=== PATIENT | female | born 1940 | race Caucasian/White ===

== ENCOUNTER 2024-01-18 11:25 | Inpatient (IN) | payer MEDICARE ==
[~2024-01-18] VITALS: Ht 157.5 cm; Wt 46.0 kg
[2024-01-18 12:41] LABS: HEMOGLOBIN 10.9 g/dl (12.0-16.0); RED CELL DISTRIBUTION WIDTH 16.8 % (11.5-14.5); WHITE BLOOD COUNT 6.5 X10'3 (4.5-11.0)
[2024-01-18 12:43] LABS: BASOPHILS # (AUTO) 0.1 X10'3 (0-0.2); BASOPHILS % (AUTO) 0.9 % (0-1); EOSINOPHILS # (AUTO) 0.1 X10'3 (0-0.9); EOSINOPHILS % (AUTO) 2.1 % (0-6); HEMATOCRIT 33.6 % (35.0-45.0); LYMPHOCYTES # (AUTO) 1.2 X10'3 (1.1-4.8); LYMPHOCYTES % (AUTO) 18.5 % (21-51); MEAN CORPUSCULAR HEMOGLOBIN 31.1 PG (27.0-31.0); MEAN CORPUSCULAR HGB CONC 32.4 g/dL (33.0-36.5); MEAN PLATELET VOLUME 8.6 FL (7.4-10.4); MONOCYTES # (AUTO) 0.7 X10'3 (0-0.9); MONOCYTES % (AUTO) 10.8 % (2-12); NEUTROPHILS # (AUTO) 4.4 X10'3 (1.8-7.7); NEUTROPHILS % (AUTO) 67.7 % (42-75); PLATELET COUNT 244 X10'3 (140-440)
[2024-01-18 13:08] LABS: ALANINE AMINOTRANSFERASE 21 U/L (12-78); ALBUMIN 2.3 G/DL (3.4-5.0); ALBUMIN/GLOBULIN RATIO 0.6 (1.1-1.5); ALKALINE PHOSPHATASE 86 IU/L (46-116); ANION GAP 6 (8-16); ASPARTATE AMINO TRANSFERASE 25 U/L (10-37); BILIRUBIN,TOTAL 0.3 MG/DL (0.1-1.0); BLOOD UREA NITROGEN 28 MG/DL (7-18); BUN/CREATININE RATIO 18.9 (10.0-20.0); CALCIUM 8.6 MG/DL (8.5-10.1); CHLORIDE 108 MMOL/L (99-107); CREATININE 1.48 MG/DL (0.40-0.90); GLUCOSE 106 MG/DL (70-104); POTASSIUM 4.6 MMOL/L (3.5-5.1); SODIUM 142 MMOL/L (135-145); TOTAL CARBON DIOXIDE 28.2 MMOL/L (24-32); TOTAL PROTEIN 6.4 G/DL (6.4-8.2); eCRCL 20 ML/MIN; eGFR 34 ML/MIN
[2024-01-18] MEDS: normal saline 1000ML IV soln IVB ONE (18:05)
[2024-01-18] MEDS: hydrALAZINE 20mg/ml inj. IV ONE (20:45)
[2024-01-18] MEDS ORDERED: potassium Cl 40MEQ/1/2NS 520ml 520 ML IV PRN (21:15)
[2024-01-18] MEDS ORDERED: magnesium 2GM in 50ml NS 50 ML IV PRN (21:15)
[2024-01-18] MEDS: normal saline 1000ml 1,000 ML IV SCH ×2 (21:15→21:35)
[2024-01-18] MEDS ORDERED: potassium Cl 20 mEq SR tablet PO PRN ×2 (21:15)
[2024-01-18] MEDS ORDERED: magnesium 4gm in 100ml NS 100 ML IV PRN (21:15)
[2024-01-18] MEDS ORDERED: ondansetron/PF 4mg/2ml inj IV PRN (21:15)
[2024-01-18] MEDS: megestrol acetate 20mg tablet PO SCH (21:34)
[2024-01-18] MEDS: losartan 50mg tablet PO STA (23:35)
[2024-01-19] VITALS (10 sets, daily range): BP systolic 107–141; BP diastolic 48–67; PULSE 63–85; RESP 14–18; TEMP 97.6–98.8; O2SAT 90–98
[2024-01-19] MEDS ORDERED: albuterol 2.5 MG/3 ML nebule NEB PRN (00:30)
[2024-01-19] MEDS: hydrALAZINE 20mg/ml inj. IV ONE (05:04)
[2024-01-19] MEDS: albuterol 2.5 MG/3 ML nebule NEB SCH (05:35)
[2024-01-19] MEDS: K and/or MAG REPLACEMENT MC SCH (08:00)
[2024-01-19] MEDS ORDERED: losartan 50mg tablet PO SCH (08:00)
[2024-01-19] MEDS: heparin, porcine 5000 units/ml vial SQ SCH (08:54)
[2024-01-19] MEDS: metoprolol tartrate 25mg tablet PO SCH (08:56)
[2024-01-19] MEDS: losartan 50mg tablet PO SCH (08:57)
[2024-01-19 09:10] LABS: MAGNESIUM 2.1 MG/DL (1.5-2.4)
[2024-01-19 09:12] LABS: POTASSIUM 4.6 MMOL/L (3.5-5.1)
[2024-01-19 10:56] LABS: APTT 24 SECONDS (22-32); PROTHROMBIN TIME 10.4 SECONDS (9.0-12.0)
[2024-01-19 12:49] LABS: THYROID STIMULATING HORMONE 3.81 ulU/ml (0.34-4.50)
[2024-01-20] VITALS (17 sets, daily range): BP systolic 121–179; BP diastolic 57–68; PULSE 60–86; RESP 13–18; TEMP 97.5–98.7; O2SAT 92–96
[2024-01-20 07:13] LABS: MAGNESIUM 1.9 MG/DL (1.5-2.4); POTASSIUM 4.3 MMOL/L (3.5-5.1)
[2024-01-20 08:53] LABS: BASOPHILS % (AUTO) 0.8 % (0-1); EOSINOPHILS # (AUTO) 0.1 X10'3 (0-0.9); EOSINOPHILS % (AUTO) 1.3 % (0-6); HEMATOCRIT 29.1 % (35.0-45.0); HEMOGLOBIN 9.2 g/dl (12.0-16.0); LYMPHOCYTES # (AUTO) 0.7 X10'3 (1.1-4.8); MEAN CORPUSCULAR HEMOGLOBIN 30.5 PG (27.0-31.0); MEAN CORPUSCULAR HGB CONC 31.8 g/dL (33.0-36.5); MEAN PLATELET VOLUME 8.7 FL (7.4-10.4); MONOCYTES # (AUTO) 0.3 X10'3 (0-0.9); MONOCYTES % (AUTO) 6.8 % (2-12); NEUTROPHILS # (AUTO) 3.4 X10'3 (1.8-7.7); NEUTROPHILS % (AUTO) 75.1 % (42-75); PLATELET COUNT 196 X10'3 (140-440); RED BLOOD COUNT 3.03 X10'6 (4.20-5.60); RED CELL DISTRIBUTION WIDTH 17.1 % (11.5-14.5); WHITE BLOOD COUNT 4.5 X10'3 (4.5-11.0)
[2024-01-20 09:05] LABS: APTT 27 SECONDS (22-32); PROTHROMBIN TIME 10.5 SECONDS (9.0-12.0)
[2024-01-20 09:06] LABS: ALANINE AMINOTRANSFERASE 18 U/L (12-78); ALBUMIN 1.9 G/DL (3.4-5.0); ALBUMIN/GLOBULIN RATIO 0.5 (1.1-1.5); ALKALINE PHOSPHATASE 67 IU/L (46-116); ANION GAP 9 (8-16); ASPARTATE AMINO TRANSFERASE 21 U/L (10-37); BILIRUBIN,TOTAL 0.2 MG/DL (0.1-1.0); BLOOD UREA NITROGEN 28 MG/DL (7-18); BUN/CREATININE RATIO 25.2 (10.0-20.0); CALCIUM 7.9 MG/DL (8.5-10.1); CHLORIDE 110 MMOL/L (99-107); CREATININE 1.11 MG/DL (0.40-0.90); GLUCOSE 147 MG/DL (70-104); POTASSIUM 4.3 MMOL/L (3.5-5.1); SODIUM 141 MMOL/L (135-145); TOTAL CARBON DIOXIDE 22.3 MMOL/L (24-32); TOTAL PROTEIN 5.4 G/DL (6.4-8.2); eCRCL 27 ML/MIN; eGFR 47 ML/MIN
[2024-01-20] MEDS: losartan 50mg tablet PO ONE (11:52)
[2024-01-20] MEDS ORDERED: iohexol 300mg/ml 100ml inj. ONE (12:54)
[2024-01-20] MEDS: temazepam 15mg capsule PO PRN (23:59)
[2024-01-21] VITALS (20 sets, daily range): BP systolic 119–213; BP diastolic 60–107; PULSE 65–102; RESP 14–20; TEMP 97.3–98.4; O2SAT 92–99
[2024-01-21 08:39] LABS: BASOPHILS # (AUTO) 0.1 X10'3 (0-0.2); BASOPHILS % (AUTO) 0.9 % (0-1); EOSINOPHILS # (AUTO) 0.2 X10'3 (0-0.9); EOSINOPHILS % (AUTO) 2.9 % (0-6); HEMATOCRIT 32.3 % (35.0-45.0); HEMOGLOBIN 10.5 g/dl (12.0-16.0); LYMPHOCYTES # (AUTO) 0.9 X10'3 (1.1-4.8); LYMPHOCYTES % (AUTO) 15.9 % (21-51); MEAN CORPUSCULAR HEMOGLOBIN 30.9 PG (27.0-31.0); MEAN CORPUSCULAR HGB CONC 32.5 g/dL (33.0-36.5); MEAN CORPUSCULAR VOLUME 95.2 FL (78-98); MEAN PLATELET VOLUME 9.1 FL (7.4-10.4); MONOCYTES # (AUTO) 0.5 X10'3 (0-0.9); MONOCYTES % (AUTO) 9.3 % (2-12); PLATELET COUNT 227 X10'3 (140-440); RED BLOOD COUNT 3.39 X10'6 (4.20-5.60); RED CELL DISTRIBUTION WIDTH 17.1 % (11.5-14.5); WHITE BLOOD COUNT 5.7 X10'3 (4.5-11.0)
[2024-01-21 09:04] LABS: ALANINE AMINOTRANSFERASE 13 U/L (12-78); ALBUMIN/GLOBULIN RATIO 0.5 (1.1-1.5); ALKALINE PHOSPHATASE 84 IU/L (46-116); ANION GAP 11 (8-16); ASPARTATE AMINO TRANSFERASE 28 U/L (10-37); BILIRUBIN,TOTAL 0.4 MG/DL (0.1-1.0); BLOOD UREA NITROGEN 21 MG/DL (7-18); BUN/CREATININE RATIO 25.9 (10.0-20.0); CALCIUM 7.8 MG/DL (8.5-10.1); CHLORIDE 109 MMOL/L (99-107); CREATININE 0.81 MG/DL (0.40-0.90); GLUCOSE 81 MG/DL (70-104); POTASSIUM 4.2 MMOL/L (3.5-5.1); SODIUM 140 MMOL/L (135-145); TOTAL CARBON DIOXIDE 20.2 MMOL/L (24-32); TOTAL PROTEIN 5.8 G/DL (6.4-8.2); eCRCL 37 ML/MIN; eGFR 67 ML/MIN
[2024-01-21 09:14] LABS: APTT 25 SECONDS (22-32); PROTHROMBIN TIME 10.3 SECONDS (9.0-12.0)
[2024-01-21] MEDS ORDERED: losartan 50mg tablet PO ONE (10:30)
[2024-01-21] MEDS: hydrALAZINE 25 MG tablet PO ONE (11:41)
[2024-01-21] MEDS ORDERED: FLU VACC QS2023-24(6MOS UP)/PF 60 MCG/0.5 ML SYRINGE IM ONE (12:20)
[2024-01-21] MEDS ORDERED: pneumococcal 23-VAL P-sac vacc 25 mcg/0.5ml vial IMVAC ONE (12:20)
[2024-01-21] MEDS: losartan 50mg tablet PO ONE (13:22)
[2024-01-21] MEDS: furosemide 20 MG/2 ML vial IV ONE (13:50)
[2024-01-21] MEDS ORDERED: METO-395 PO (14:40)
[2024-01-21] MEDS ORDERED: LOSA-415 PO ×2 (14:40→14:49)
[2024-01-21] MEDS ORDERED: LOP12.5T PO (14:40)
[2024-01-21] MEDS ORDERED: FERR325T28 PO (14:40)
[2024-01-21] MEDS ORDERED: SERT25TA PO (14:40)
[2024-01-21] MEDS ORDERED: TRAZ-251 PO (14:40)
[2024-01-21] MEDS ORDERED: SERT100T PO (14:40)
[2024-01-21] MEDS ORDERED: HYDR100T27 PO (14:40)
[2024-01-21] MEDS ORDERED: FURO-150 PO (14:43)
[2024-01-21] MEDS ORDERED: PANT-47 PO (14:43)
[2024-01-21] MEDS ORDERED: ONDA4TAB12 PO (14:43)
[2024-01-21] MEDS ORDERED: LOSA-416 PO (14:49)
[2024-01-21] MEDS ORDERED: ALLO300T8 PO (14:49)
[2024-01-21] MEDS: lactose-reduced food (Ensure Enlive) - 237ml bottle PO SCH (18:55)
[2024-01-21] MEDS: acetaminophen 325mg tablet PO PRN (19:17)
[2024-01-21] MEDS: pantoprazole 40mg Tablet.DR PO SCH (20:59)
[2024-01-21] MEDS: furosemide 20 MG/2 ML vial IV SCH (21:01)
[2024-01-21] MEDS: losartan 25mg tablet PO SCH (21:01)
[2024-01-21] MEDS: hydrALAZINE 25 MG tablet PO SCH (21:01)
[2024-01-21] MEDS: traZODone 50mg tablet PO SCH (21:02)
[2024-01-22] VITALS (7 sets, daily range): BP systolic 131–156; BP diastolic 58–74; PULSE 79–98; RESP 16–18; TEMP 98.1–98.6; O2SAT 92–100
[2024-01-22 03:33] LABS: PROTHROMBIN TIME 10.5 SECONDS (9.0-12.0)
[2024-01-22 07:53] LABS: ALANINE AMINOTRANSFERASE 11 U/L (12-78); ALBUMIN 1.7 G/DL (3.4-5.0); ALBUMIN/GLOBULIN RATIO 0.5 (1.1-1.5); ALKALINE PHOSPHATASE 79 IU/L (46-116); ANION GAP 8 (8-16); ASPARTATE AMINO TRANSFERASE 20 U/L (10-37); BILIRUBIN,TOTAL 0.3 MG/DL (0.1-1.0); BLOOD UREA NITROGEN 23 MG/DL (7-18); BUN/CREATININE RATIO 21.9 (10.0-20.0); CALCIUM 8.1 MG/DL (8.5-10.1); CHLORIDE 110 MMOL/L (99-107); CREATININE 1.05 MG/DL (0.40-0.90); GLUCOSE 94 MG/DL (70-104); MAGNESIUM 1.9 MG/DL (1.5-2.4); POTASSIUM 4.4 MMOL/L (3.5-5.1); SODIUM 140 MMOL/L (135-145); TOTAL CARBON DIOXIDE 22.1 MMOL/L (24-32); TOTAL PROTEIN 5.3 G/DL (6.4-8.2); eCRCL 28 ML/MIN; eGFR 50 ML/MIN
[2024-01-22 08:28] LABS: PRO BRAIN NATRIURETIC PEPTIDE 9645 PG/ML (0-450)
[2024-01-22] MEDS: sertraline 50mg tablet PO SCH (09:15)
[2024-01-22] MEDS: ferrous sulfate 325mg tablet PO SCH (09:17)
[2024-01-22] MEDS: losartan 50mg tablet PO SCH (09:17)
[2024-01-22] MEDS: metoprolol succinate 25mg (24-HOUR) SR. Tablet PO SCH (09:21)
[2024-01-22] MEDS: allopurinol 300 MG tablet PO SCH (09:22)
[2024-01-23] MEDS ORDERED: allopurinol 100mg tablet PO SCH (08:00)
== END 2024-01-22 13:40 | DRG 682 ==
LOC: ER 11:26 → ED HOLD 21:25 → EDBEDREQ 01-19 06:40 → ORTHO 4S 01-19 07:24
PROVIDERS: ADMIT Internal Medicine; ATTEND Internal Medicine
PROC: BW241ZZ Computerized Tomography (CT Scan) of Chest and Abdomen using Low Osmolar Contrast (ICD-10-PCS; principal; 2024-01-20)
DX: N17.9 Acute kidney failure, unspecified (principal); E43 Unspecified severe protein-calorie malnutrition; J96.91 Respiratory failure, unspecified with hypoxia; Z68.1 Body mass index [BMI] 19.9 or less, adult; R62.7 Adult failure to thrive; I16.0 Hypertensive urgency; I48.0 Paroxysmal atrial fibrillation; Z66 Do not resuscitate; I50.9 Heart failure, unspecified; Z90.5 Acquired absence of kidney; Z95.0 Presence of cardiac pacemaker; Z88.0 Allergy status to penicillin; Z95.5 Presence of coronary angioplasty implant and graft; I11.0 Hypertensive heart disease with heart failure
CPT/HCPCS: 36415; 70450; 71045; 71260; 74176; 80053; 83735; 83880; 84100; 84132; 84443; 85025; 85610; 85730; 87502; 87503; 90686; 90732; 92508; 92616; 93005; 94640; 94760; 97110; 97116; 97161; 97530; 99285; A4615; G0378; J0360; J1644; J1940; J3490; J7030; Q9967